=== PATIENT | female | born 1940 | race Caucasian/White ===

== ENCOUNTER → 2022-08-23 | Outpatient (CLI) | payer MEDICARE ==
[~2022-08-23] MED LIST: PROTONIX IV40 M1 IV; Z.0.AMBIEN10 MG PO; Z.0.AMITRIPTYLINE H2 PO; Z.0.GABAPENTIN100 MG PO; Z.0.LEVOXYL75 MCG PO; Z.0.TOPAMAX50 MG PO; Z.0.WELCHOL625 MG PO; Z.0.ZOCOR40 MG PO; [UNRECOGNIZED DRUG - OTHER] PO
== END ==
LOC: DX 11:09
PROVIDERS: ATTEND Family Medicine
DX: R13.19 Other dysphagia (principal)
CPT/HCPCS: 74230

== ENCOUNTER 2023-09-05 16:52 | Emergency (ER) | payer MEDICARE ==
[~2023-09-05] VITALS: Ht 152.4 cm; Wt 59.0 kg
[~2023-09-05 16:52] MED LIST changes: -PROTONIX IV40 M1 IV; +PROTONIX IV40 M1 PO
[2023-09-05] MEDS ORDERED: FAMOTIDINE20 MG PO (17:36)
[2023-09-05] MEDS ORDERED: LYRICA75 MG PO (17:36)
[2023-09-05] MEDS ORDERED: MEMANTINE HCL10 MG (17:36)
[2023-09-05] MEDS ORDERED: SUCRALFATE1 GM PO (17:37)
[2023-09-05] MEDS ORDERED: PROBIOTIC1 EAC1 (17:37)
[2023-09-05] MEDS ORDERED: CYMBALTA30 MG PO (17:37)
[2023-09-05] MEDS ORDERED: TRAZODONE HCL50 MG PO (17:37)
[2023-09-05] MEDS ORDERED: VITAMIN B-125000 MCG (17:37)
[2023-09-05] MEDS ORDERED: OS-CAL 500+D T1 EACH PO (17:37)
[2023-09-05] MEDS ORDERED: SERTRALINE HCL50 MG PO (17:37)
[2023-09-05] MEDS ORDERED: IBUPROFEN800 MG PO (17:37)
[2023-09-05] MEDS ORDERED: PRIMIDONE125 MG PO (17:37)
[2023-09-05] MEDS ORDERED: VITAMIN D250 MCG PO (17:37)
[2023-09-05] MEDS ORDERED: ARICEPT5 MG PO (17:37)
[2023-09-05] MEDS ORDERED: GEMTESA75 MG (17:37)
[2023-09-05] MEDS: SODIUM CHLORIDE 0.9% 1000ML 1,000 ML IV STA (18:03)
[2023-09-05 20:27] VITALS: TEMP 97.7
[2023-09-05 20:53] VITALS: PULSE 67; RESP 16; O2SAT 97
== END 2023-09-05 21:05 | disposition home or self-care (01) ==
LOC: FSED 17:00
DX: R53.1 Weakness (principal); R55 Syncope and collapse; E86.0 Dehydration; I10 Essential (primary) hypertension; E78.5 Hyperlipidemia, unspecified; E03.9 Hypothyroidism, unspecified; F03.90 Unspecified dementia, unspecified severity, without behavioral disturbance, psychotic disturbance, mood disturbance, and anxiety; R94.31 Abnormal electrocardiogram [ECG] [EKG]
CPT/HCPCS: 70450; 71250; 80053; 81003; 82553; 84484; 85025; 93005; 99284; J7030

== ENCOUNTER 2023-10-17 12:14 | Emergency (ER) | payer MEDICARE ==
[~2023-10-17] VITALS: Ht 154.9 cm; Wt 59.0 kg
[~2023-10-17 12:14] MED LIST changes: +ARICEPT5 MG PO; +CYMBALTA30 MG PO; +FAMOTIDINE20 MG PO; +GEMTESA75 MG; +IBUPROFEN800 MG PO; +LYRICA75 MG PO; +MEMANTINE HCL10 MG; +OS-CAL 500+D T1 EACH PO; +PRIMIDONE125 MG PO; +PROBIOTIC1 EAC1; +SERTRALINE HCL50 MG PO; +SUCRALFATE1 GM PO; +TRAZODONE HCL50 MG PO; +VITAMIN B-125000 MCG; +VITAMIN D250 MCG PO
[2023-10-17 12:20] VITALS: PULSE 67; RESP 15
[2023-10-17] MEDS: TRAMADOL HCL 50 MG TAB PO ONE (12:42)
[2023-10-17 13:14] VITALS: TEMP 98.7
[2023-10-17 15:04] VITALS: BP 119/65; PULSE 74; RESP 18; TEMP 98.6; O2SAT 99
== END 2023-10-17 15:00 | disposition home or self-care (01) ==
LOC: ER 12:25
DX: S00.03XA Contusion of scalp, initial encounter (principal); M25.552 Pain in left hip; W01.198A Fall on same level from slipping, tripping and stumbling with subsequent striking against other object, initial encounter; Y92.89 Other specified places as the place of occurrence of the external cause; I10 Essential (primary) hypertension; E78.5 Hyperlipidemia, unspecified; F03.90 Unspecified dementia, unspecified severity, without behavioral disturbance, psychotic disturbance, mood disturbance, and anxiety; E03.9 Hypothyroidism, unspecified; F41.9 Anxiety disorder, unspecified; K21.9 Gastro-esophageal reflux disease without esophagitis
CPT/HCPCS: 70450; 72125; 99284

== ENCOUNTER 2024-04-26 20:56 | Inpatient (IN) | payer MEDICARE ==
[~2024-04-26] VITALS: Ht 154.9 cm; Wt 58.8 kg
[~2024-04-26 20:56] MED LIST changes: +SEVOFLURANE INHAL SOLN 250 ML PEN BTL ONE
[2024-04-26] MEDS: DICYCLOMINE HCL 20 MG/2 ML VIAL IM ONE (21:45)
[2024-04-26] MEDS: ONDANSETRON HCL INJ 2MG/ML 2ML 2 MG/ML VIAL IV STA (21:45)
[2024-04-26 22:20] LABS: BASOPHILS # (AUTO) 0.1 (0.0-0.1); BASOPHILS % 0.6 % (0.0-1.0); EOSINOPHILS % 0.2 % (0.0-6.0); HEMATOCRIT 38.9 % (34.2-44.1); HEMOGLOBIN 12.9 g/dL (12.0-16.0); LYMPHOCYTES # (AUTO) 6.6 (1.0-3.2); LYMPHOCYTES % 42.1 % (18.0-39.1); MEAN CORPUSCULAR HEMOGLOBIN 30.5 pg (28-32); MEAN CORPUSCULAR HGB CONC 33.2 g/dL (31-35); MONOCYTES # (AUTO) 0.5 (0.2-0.8); MONOCYTES % 3.1 % (4.4-11.3); NEUTROPHILS # (AUTO) 8.4 (2.1-6.9); NEUTROPHILS % 53.7 % (38.7-80.0); PLATELET COUNT 303 x10e3/uL (140-360); RED BLOOD COUNT 4.23 x10e6/uL (3.6-5.1); RED CELL DISTRIBUTION WIDTH 14.8 % (11.7-14.4); WHITE BLOOD COUNT 15.67 x10e3/uL (4.8-10.8)
[2024-04-26] MEDS: FENTANYL CITRATE/PF 100MCG/2 ML INJ IV PRN (22:44)
[2024-04-26 22:49] LABS: ALANINE AMINOTRANSFERASE 23 IU/L (0-55); ALBUMIN 4.1 g/dL (3.5-5.0); ALKALINE PHOSPHATASE 105 IU/L (40-150); ANION GAP 16.8 mmol/L (8-16); BILIRUBIN,TOTAL 0.3 mg/dL (0.2-1.2); BLOOD UREA NITROGEN 19 mg/dL (7-26); BUN/CREATININE RATIO 15 (6-25); CALCIUM 10.5 mg/dL (8.4-10.2); CARBON DIOXIDE 18 mmol/L (22-29); CHLORIDE 106 mmol/L (98-107); CREATININE, SERUM 1.26 mg/dL (0.57-1.11); EST GLOMERULAR FILTRATION RATE 42 ML/MIN (>=60); GLUCOSE 118 mg/dL (74-118); LIPASE 32 U/L (8-78); POTASSIUM 3.8 mmol/L (3.5-5.1); SODIUM 137 mmol/L (136-145); TOTAL PROTEIN 8.1 g/dL (6.5-8.1)
[2024-04-26] MEDS ORDERED: IOPAMIDOL 370 MG/ML 100 ML INFUS..BTL INJ ONE (22:54)
[2024-04-26 22:59] LABS: TROPONIN I < 0.001 ng/mL (0-0.300)
[2024-04-27] VITALS (11 sets, daily range): BP systolic 84–120; BP diastolic 42–60; PULSE 71–127; RESP 13–20; TEMP 98.1–98.6; O2SAT 95–100
[2024-04-27] MEDS ORDERED: METRONIDAZOLE 500MG/NS 100ML 200 ML IV ONE (00:17)
[2024-04-27] MEDS: LACTATED RINGER'S 1,000 ML INJ ONE (00:26)
[2024-04-27] MEDS: METRONIDAZOLE 750MG/NS 150ML 150 ML IV SCH (00:26)
[2024-04-27] MEDS ORDERED: ACETAMINOPHEN 325 MG TAB PO PRN (02:15)
[2024-04-27 02:25] LABS: CLARITY,URINE CLEAR (CLEAR); COLOR,URINE YELLOW (YELLOW); GLUCOSE, URINE NEGATIVE (NEGATIVE); KETONES,URINE 1+ (NEGATIVE); LEUKOCYTE ESTERASE ,URINE NEGATIVE (NEGATIVE); NITRITE,URINE NEGATIVE (NEGATIVE); PH,URINE 6 (5 - 7); PROTEIN,URINE DIPSTICK NEGATIVE (NEGATIVE)
[2024-04-27 02:26] LABS: BILIRUBIN,URINE NEGATIVE (NEGATIVE); URINE UROBILINOGEN 0.2 mg/dL (0.2 - 1)
[2024-04-27 02:30] LABS: BACTERIA,URINE MODERATE /HPF; EPITHELIAL CELLS,URINE FEW /LPF; WBC,URINE (MAN) 0-5 /HPF (0-5)
[2024-04-27] MEDS: Morphine 4mg INJECTION 4 MG/ML INJ IV PRN (02:30)
[2024-04-27] MEDS: ONDANSETRON HCL INJ 2MG/ML 2ML 2 MG/ML VIAL IV PRN (02:30)
[2024-04-27] MEDS: SODIUM CHLORIDE 0.9% 1000ML 1,000 ML IV SCH (02:30)
[2024-04-27 04:30] LABS: EOSINOPHILS % (MANUAL) 1 % (0-7); LYMPHOCYTES % (MANUAL) 35 % (19-48); MONOCYTES % (MANUAL) 6 % (3.4-9.0); NEUTROPHILS % (MANUAL) 58 % (40-74)
[2024-04-27 04:33] LABS: PLATELET ESTIMATE ADEQUATE; PLATELET MORPHOLOGY COMMENT NORMAL; RBC MORPHOLOGY COMMENT NORMAL
[2024-04-27 06:35] LABS: MAGNESIUM 1.7 MG/DL (1.3-2.1)
[2024-04-27 06:45] LABS: INR 1.01; PROTHROMBIN TIME 13.9 seconds (11.9-14.5)
[2024-04-27 06:46] LABS: PARTIAL THROMBOPLASTIN TIME 24.8 seconds (23.8-35.5)
[2024-04-27 06:55] LABS: THYROID STIMULATING HORMONE 0.984 uIU/mL (0.350-4.940)
[2024-04-27] MEDS: HEPARIN SOD (PORCINE) 5,000 UNIT/ML VIAL SC SCH (09:00)
[2024-04-27] MEDS ORDERED: LIDOCAINE HCL 2% LOCAL INJ 5 ML SDV VIAL INJ ONE (11:25)
[2024-04-27] MEDS ORDERED: FENTANYL CITRATE/PF 100MCG/2 ML INJ ONE (11:25)
[2024-04-27] MEDS ORDERED: PROPOFOL IV EMULSION 10 MG/ML 20 ML VIAL ONE (11:27)
[2024-04-27] MEDS ORDERED: ROCURONIUM BROMIDE 1 ML IV ONE (11:28)
[2024-04-27] MEDS ORDERED: DEXAMETHASONE SOD PHOS INJ 4 MG/ML SDV ONE (11:29)
[2024-04-27] MEDS ORDERED: ONDANSETRON HCL INJ 2MG/ML 2ML 2 MG/ML VIAL ONE (11:29)
[2024-04-27] MEDS ORDERED: ALBUMIN 25% 12.5GM 50ML 50 ML IV ONE (11:59)
[2024-04-27] MEDS ORDERED: EPHEDRINE SULFATE INJ 50 MG/ML VIAL ONE (12:10)
[2024-04-27] MEDS ORDERED: ACETAMINOPHEN 1000 MG/100 ML 100 ML IV ONE (12:44)
[2024-04-27] MEDS ORDERED: NALOXONE HCL INJ 0.4 MG/ML AMP ONE (13:46)
[2024-04-27] MEDS ORDERED: ACETAMINOPHEN 1000 MG/100 ML IV PRN (14:00)
[2024-04-27] MEDS: SODIUM CHLORIDE 0.9% 250ML IRRIG IR SCH (15:19)
[2024-04-27] MEDS: HYDROMORPHONE 1MG/1ML INJ IV PRN (15:21)
[2024-04-27] MEDS ORDERED: CHLORASEPTIC SPRAY 177 ML BTL MM PRN (17:45)
[2024-04-27] MEDS: CHLORASEPTIC SPRAY 177 ML BTL MM PRN (18:42)
[2024-04-27] MEDS: BUPIVACAINE LIPOSOME/PF 266 MG/20 ML IJ ONE (20:01)
[2024-04-27] MEDS: PIPERACILLIN/TAZOBACTAM 3.375 GM VIAL ONE (20:01)
[2024-04-28] VITALS (16 sets, daily range): BP systolic 100–139; BP diastolic 45–71; PULSE 74–92; RESP 11–20; TEMP 99.4; O2SAT 96–100
[2024-04-28 06:57] LABS: BASOPHILS % 0.1 % (0.0-1.0); HEMATOCRIT 28.1 % (34.2-44.1); LYMPHOCYTES # (AUTO) 5.7 (1.0-3.2); LYMPHOCYTES % 33.7 % (18.0-39.1); MEAN CORPUSCULAR HEMOGLOBIN 29.9 pg (28-32); MEAN CORPUSCULAR VOLUME 93.4 fL (81-99); MONOCYTES % 5.7 % (4.4-11.3); NEUTROPHILS # (AUTO) 10.1 (2.1-6.9); NEUTROPHILS % 60.1 % (38.7-80.0); PLATELET COUNT 221 x10e3/uL (140-360); RED BLOOD COUNT 3.01 x10e6/uL (3.6-5.1); RED CELL DISTRIBUTION WIDTH 15.5 % (11.7-14.4); WHITE BLOOD COUNT 16.81 x10e3/uL (4.8-10.8)
[2024-04-28 07:19] LABS: ANION GAP 13.2 mmol/L (8-16); CREATININE, SERUM 1.02 mg/dL (0.57-1.11); POTASSIUM 4.2 mmol/L (3.5-5.1)
[2024-04-28 07:34] LABS: LYMPHOCYTES % (MANUAL) 36 % (19-48); MONOCYTES % (MANUAL) 4 % (3.4-9.0); NEUTROPHILS % (MANUAL) 60 % (40-74); PLATELET ESTIMATE ADEQUATE; PLATELET MORPHOLOGY COMMENT NORMAL
[2024-04-28] MEDS: LACTATED RINGER'S 1,000 ML INJ SCH (11:26)
[2024-04-28] MEDS: HYDROMORPHONE 1MG/1ML INJ IV PRN (12:31)
[2024-04-28] MEDS: HYDROMORPHONE 2MG/ML IV PRN (21:37)
[2024-04-29] VITALS (27 sets, daily range): BP systolic 109–153; BP diastolic 48–98; PULSE 67–144; RESP 7–19; TEMP 98–99.4; O2SAT 96–100
[2024-04-29] MEDS: MAGNESIUM SULFATE 2GM/50ML 50 ML IV ONE (05:36)
[2024-04-29 06:47] LABS: BASOPHILS # (AUTO) 0.1 (0.0-0.1); BASOPHILS % 0.5 % (0.0-1.0); EOSINOPHILS # (AUTO) 0.2 (0.0-0.4); HEMATOCRIT 30.6 % (34.2-44.1); HEMOGLOBIN 9.6 g/dL (12.0-16.0); LYMPHOCYTES # (AUTO) 5.9 (1.0-3.2); LYMPHOCYTES % 34.7 % (18.0-39.1); MEAN CORPUSCULAR HEMOGLOBIN 30.4 pg (28-32); MEAN CORPUSCULAR HGB CONC 31.4 g/dL (31-35); MEAN CORPUSCULAR VOLUME 96.8 fL (81-99); MONOCYTES # (AUTO) 1.4 (0.2-0.8); MONOCYTES % 8.4 % (4.4-11.3); NEUTROPHILS # (AUTO) 9.3 (2.1-6.9); NEUTROPHILS % 54.8 % (38.7-80.0); PLATELET COUNT 244 x10e3/uL (140-360); RED BLOOD COUNT 3.16 x10e6/uL (3.6-5.1); RED CELL DISTRIBUTION WIDTH 15.6 % (11.7-14.4); WHITE BLOOD COUNT 17.03 x10e3/uL (4.8-10.8)
[2024-04-29 07:13] LABS: CALCIUM IONIZED 1.3 mmol/L (1.09-1.30)
[2024-04-29 07:16] LABS: TROPONIN I 0.021 ng/mL (0-0.300)
[2024-04-29] MEDS: AMIODARONE HCL 150 MG/100 ML BAG IV ONE (07:38)
[2024-04-29 07:50] LABS: LYMPHOCYTES % (MANUAL) 29 % (19-48); MONOCYTES % (MANUAL) 3 % (3.4-9.0); NEUTROPHILS % (MANUAL) 68 % (40-74)
[2024-04-29 07:51] LABS: PLATELET ESTIMATE ADEQUATE; PLATELET MORPHOLOGY COMMENT NORMAL; RBC MORPHOLOGY COMMENT NORMAL
[2024-04-29] MEDS: AMIODARONE 900MG 500 ML IV SCH (07:52)
[2024-04-29 08:58] LABS: ALBUMIN 2.7 g/dL (3.5-5.0); ALBUMIN/GLOBULIN RATIO 0.9 (0.8-2.0); ANION GAP 16.6 mmol/L (8-16); BILIRUBIN,TOTAL 0.3 mg/dL (0.2-1.2); CALCIUM 8.8 mg/dL (8.4-10.2); CREATININE, SERUM 1.02 mg/dL (0.57-1.11); POTASSIUM 3.6 mmol/L (3.5-5.1); TOTAL PROTEIN 5.7 g/dL (6.5-8.1)
[2024-04-29] MEDS ORDERED: METOPROLOL TARTRATE INJ 1 MG/ML VIAL IV PRN (10:45)
[2024-04-29 12:20] LABS: ABG HCO3 18 mmol/L (22-26); ABG PCO2 41 mmHg (35-45); ABG PH 7.25 (7.35-7.45); ABG PO2 45 mmHg (80-105); ABG TCO2 19
[2024-04-29] MEDS: BISACODYL 10 MG SUPP PR ONE (13:56)
[2024-04-30] VITALS (21 sets, daily range): BP systolic 112–171; BP diastolic 53–87; PULSE 75–88; RESP 5–20; TEMP 98.2–100.4; O2SAT 97–100
[2024-04-30 06:26] LABS: BASOPHILS # (AUTO) 0.1 (0.0-0.1); BASOPHILS % 0.4 % (0.0-1.0); EOSINOPHILS # (AUTO) 0.2 (0.0-0.4); EOSINOPHILS % 1.3 % (0.0-6.0); HEMATOCRIT 26.7 % (34.2-44.1); HEMOGLOBIN 8.6 g/dL (12.0-16.0); LYMPHOCYTES # (AUTO) 5.1 (1.0-3.2); MEAN CORPUSCULAR HEMOGLOBIN 29.8 pg (28-32); MEAN CORPUSCULAR HGB CONC 32.2 g/dL (31-35); MEAN CORPUSCULAR VOLUME 92.4 fL (81-99); MONOCYTES % 7.2 % (4.4-11.3); NEUTROPHILS % 52.7 % (38.7-80.0); PLATELET COUNT 233 x10e3/uL (140-360); RED BLOOD COUNT 2.89 x10e6/uL (3.6-5.1); RED CELL DISTRIBUTION WIDTH 15.1 % (11.7-14.4); WHITE BLOOD COUNT 13.36 x10e3/uL (4.8-10.8)
[2024-04-30 06:52] LABS: ALBUMIN 2.3 g/dL (3.5-5.0); ALBUMIN/GLOBULIN RATIO 0.9 (0.8-2.0); ANION GAP 15.4 mmol/L (8-16); BILIRUBIN,TOTAL 0.3 mg/dL (0.2-1.2); CREATININE, SERUM 0.86 mg/dL (0.57-1.11); MAGNESIUM 1.6 MG/DL (1.3-2.1)
[2024-04-30 06:53] LABS: POTASSIUM 3.4 mmol/L (3.5-5.1)
[2024-04-30] MEDS: BISACODYL 10 MG SUPP PR ONE (10:54)
[2024-04-30] MEDS: LACTATED RINGER'S 1,000 ML INJ SCH (11:41)
[2024-04-30] MEDS: MAGNESIUM SULFATE 2GM/50ML 50 ML IV ONE (11:41)
[2024-04-30] MEDS: AMIODARONE 900MG 500 ML IV SCH (15:44)
[2024-04-30] MEDS: BISACODYL 10 MG SUPP PR SCH (20:44)
[2024-05-01] VITALS (23 sets, daily range): BP systolic 110–161; BP diastolic 51–126; PULSE 70–138; RESP 4–21; TEMP 98.7–99.8; O2SAT 97–100
[2024-05-01 06:15] LABS: BASOPHILS # (AUTO) 0.1 (0.0-0.1); BASOPHILS % 0.5 % (0.0-1.0); EOSINOPHILS # (AUTO) 0.2 (0.0-0.4); EOSINOPHILS % 1.5 % (0.0-6.0); HEMATOCRIT 25.6 % (34.2-44.1); HEMOGLOBIN 8.5 g/dL (12.0-16.0); LYMPHOCYTES # (AUTO) 4.9 (1.0-3.2); LYMPHOCYTES % 40.9 % (18.0-39.1); MEAN CORPUSCULAR HEMOGLOBIN 30.5 pg (28-32); MEAN CORPUSCULAR HGB CONC 33.2 g/dL (31-35); MEAN CORPUSCULAR VOLUME 91.8 fL (81-99); MONOCYTES % 8.4 % (4.4-11.3); NEUTROPHILS # (AUTO) 5.9 (2.1-6.9); NEUTROPHILS % 48.5 % (38.7-80.0); PLATELET COUNT 228 x10e3/uL (140-360); RED BLOOD COUNT 2.79 x10e6/uL (3.6-5.1); RED CELL DISTRIBUTION WIDTH 14.8 % (11.7-14.4); WHITE BLOOD COUNT 12.09 x10e3/uL (4.8-10.8)
[2024-05-01 06:29] LABS: ALBUMIN 2.2 g/dL (3.5-5.0); ALBUMIN/GLOBULIN RATIO 0.8 (0.8-2.0); ANION GAP 13.2 mmol/L (8-16); BILIRUBIN,TOTAL 0.5 mg/dL (0.2-1.2); CALCIUM 8.1 mg/dL (8.4-10.2); CREATININE, SERUM 0.76 mg/dL (0.57-1.11); TOTAL PROTEIN 4.9 g/dL (6.5-8.1)
[2024-05-01 06:32] LABS: POTASSIUM 3.2 mmol/L (3.5-5.1)
[2024-05-01] MEDS: POTASSIUM CHLORIDE 20MEQ/100ML 100 ML IV SCH (18:09)
[2024-05-01] MEDS: AMIODARONE 900MG 500 ML IV ONE (21:28)
[2024-05-02] VITALS (25 sets, daily range): BP systolic 134–172; BP diastolic 53–92; PULSE 64–85; RESP 7–21; TEMP 97.7–99.2; O2SAT 95–100
[2024-05-02 07:01] LABS: BASOPHILS # (AUTO) 0.1 (0.0-0.1); BASOPHILS % 0.4 % (0.0-1.0); EOSINOPHILS # (AUTO) 0.2 (0.0-0.4); EOSINOPHILS % 1.6 % (0.0-6.0); HEMATOCRIT 27.2 % (34.2-44.1); LYMPHOCYTES # (AUTO) 5.3 (1.0-3.2); LYMPHOCYTES % 44.7 % (18.0-39.1); MEAN CORPUSCULAR HGB CONC 33.1 g/dL (31-35); MEAN CORPUSCULAR VOLUME 90.7 fL (81-99); MONOCYTES % 8.2 % (4.4-11.3); NEUTROPHILS # (AUTO) 5.3 (2.1-6.9); NEUTROPHILS % 44.8 % (38.7-80.0); PLATELET COUNT 258 x10e3/uL (140-360); RED CELL DISTRIBUTION WIDTH 14.6 % (11.7-14.4)
[2024-05-02 07:26] LABS: ALBUMIN 2.1 g/dL (3.5-5.0); ALBUMIN/GLOBULIN RATIO 0.7 (0.8-2.0); ANION GAP 15.5 mmol/L (8-16); BILIRUBIN,TOTAL 0.4 mg/dL (0.2-1.2); CALCIUM 8.4 mg/dL (8.4-10.2); CREATININE, SERUM 0.74 mg/dL (0.57-1.11); POTASSIUM 3.5 mmol/L (3.5-5.1); TOTAL PROTEIN 5.2 g/dL (6.5-8.1)
[2024-05-02] MEDS: BISACODYL 10 MG SUPP PR ONE (08:11)
[2024-05-02] MEDS: AMIODARONE HCL 200 MG TAB PO SCH (09:23)
[2024-05-02] MEDS: HYDRALAZINE HCL 20 MG/ML VIAL IV PRN (17:13)
[2024-05-02] MEDS: MEMANTINE 10 MG TAB PO SCH (20:57)
[2024-05-02] MEDS: SERTRALINE HCL 50 MG TAB PO SCH (20:57)
[2024-05-02] MEDS: DONEPEZIL HCL 5 MG TAB PO SCH (20:58)
[2024-05-02] MEDS: TRAZODONE HCL 50 MG TAB PO SCH (20:58)
[2024-05-03 03:51] VITALS: BP 134/74; PULSE 74; RESP 18; TEMP 98; O2SAT 99
[2024-05-03] MEDS: ACETAMINOPHEN 325 MG TAB PO PRN (04:24)
[2024-05-03] MEDS: SODIUM CHLORIDE 0.9% 250ML 250 ML ONE (07:32)
[2024-05-03 08:00] VITALS: BP 147/61; PULSE 67; RESP 14; TEMP 98.8; O2SAT 97
[2024-05-03 09:00] VITALS: BP 147/61; PULSE 67; RESP 14; TEMP 98.8; O2SAT 97
[2024-05-03] MEDS: LEVOTHYROXINE SODIUM 112 MCG TAB PO SCH (09:41)
[2024-05-03] MEDS: DULOXETINE HCL 30 MG DELAYED RELEASE PO SCH (09:42)
[2024-05-03] MEDS: FAMOTIDINE 20 MG TAB PO SCH (09:42)
[2024-05-03] MEDS: METOPROLOL SUCCINATE 25 MG TAB XL PO SCH (09:44)
[2024-05-03 12:00] VITALS: BP 113/46; PULSE 71; RESP 18; TEMP 97.8; O2SAT 97
[2024-05-03 16:00] VITALS: BP 129/65; PULSE 68; RESP 12; TEMP 98.6; O2SAT 95
[2024-05-03 21:00] VITALS: BP 119/62; PULSE 64; RESP 16; TEMP 98.6; O2SAT 97
[2024-05-04 04:00] VITALS: BP 110/54; PULSE 64; RESP 16; TEMP 98.4
[2024-05-04 08:00] VITALS: BP 123/51; PULSE 65; RESP 17; TEMP 98.3; O2SAT 97
[2024-05-04 12:16] VITALS: BP 114/55; PULSE 68; RESP 18; TEMP 98.4; O2SAT 97
[2024-05-04 16:01] VITALS: BP 103/52; PULSE 63; RESP 18; TEMP 98.4; O2SAT 98
[2024-05-04 20:00] VITALS: BP 125/57; PULSE 64; RESP 16; TEMP 97.9; O2SAT 98
[2024-05-04 23:51] VITALS: BP 125/57; PULSE 64; RESP 16; TEMP 97.9; O2SAT 98
[2024-05-05 04:24] VITALS: BP 101/50; PULSE 62; RESP 18; TEMP 98.4; O2SAT 96
[2024-05-05 08:00] VITALS: BP 104/53; PULSE 59; RESP 18; TEMP 98.2; O2SAT 98
[2024-05-05 09:00] VITALS: BP 104/53; PULSE 59; RESP 18; TEMP 98.2; O2SAT 98
[2024-05-05 13:18] VITALS: PULSE 84; RESP 14; O2SAT 95
[2024-05-05 16:00] VITALS: BP 112/44; PULSE 62; RESP 19; TEMP 98.6; O2SAT 100
[2024-05-05] MEDS ORDERED: AMIODARONE HCL200 MG PO (17:43)
[2024-05-05] MEDS ORDERED: TOPROL XL25 MG PO (17:43)
[2024-05-06] MEDS ORDERED: AMIODARONE HCL 200 MG TAB PO SCH (09:00)
[2024-05-06] MEDS ORDERED: METOPROLOL SUCCINATE 25 MG TAB XL PO SCH (09:00)
== END 2024-05-05 18:21 | disposition home health service (06) | DRG 330 ==
LOC: ER 21:09 → ERHOLD 04-27 00:21 → ICU 04-27 12:59 → MED/SURG 05-02 17:52
PROVIDERS: ADMIT Family Medicine; ATTEND Family Medicine
PROC: 0D9670Z Drainage of Stomach with Drainage Device, Via Natural or Artificial Opening (ICD-10-PCS; 2024-04-27)
PROC: 0DTF0ZZ Resection of Right Large Intestine, Open Approach (ICD-10-PCS; principal; 2024-04-27 12:00)
PROC: 4A033R1 Measurement of Arterial Saturation, Peripheral, Percutaneous Approach (ICD-10-PCS; 2024-04-29)
PROC: 02HV33Z Insertion of Infusion Device into Superior Vena Cava, Percutaneous Approach (ICD-10-PCS; 2024-04-30)
PROC: B548ZZA Ultrasonography of Superior Vena Cava, Guidance (ICD-10-PCS; 2024-04-30)
DX: K56.2 Volvulus (principal); E87.20 Acidosis, unspecified; N17.9 Acute kidney failure, unspecified; K56.50 Intestinal adhesions [bands], unspecified as to partial versus complete obstruction; I48.91 Unspecified atrial fibrillation; E83.52 Hypercalcemia; E87.8 Other disorders of electrolyte and fluid balance, not elsewhere classified; K58.2 Mixed irritable bowel syndrome; R53.81 Other malaise; E78.5 Hyperlipidemia, unspecified; I12.9 Hypertensive chronic kidney disease with stage 1 through stage 4 chronic kidney disease, or unspecified chronic kidney disease; N18.32 Chronic kidney disease, stage 3b; K21.9 Gastro-esophageal reflux disease without esophagitis; F41.8 Other specified anxiety disorders; F03.90 Unspecified dementia, unspecified severity, without behavioral disturbance, psychotic disturbance, mood disturbance, and anxiety; E03.9 Hypothyroidism, unspecified; G43.909 Migraine, unspecified, not intractable, without status migrainosus; Z71.3 Dietary counseling and surveillance; Z68.24 Body mass index [BMI] 24.0-24.9, adult; G62.9 Polyneuropathy, unspecified; G25.0 Essential tremor; E56.9 Vitamin deficiency, unspecified; Z79.899 Other long term (current) drug therapy
CPT/HCPCS: 36415; 36584; 71045; 74177; 80048; 80053; 81001; 82805; 82948; 83605; 83690; 83735; 84443; 84484; 85025; 85610; 85730; 87040; 88305; 88307; 93005; 93306; 94799; 99252; 99284; J0360; J0666; J1100; J1171; J2003; J2270; J2310; J2405; J2470; J2543; J3475; J3480; J7030; J7050; Q9967